=== PATIENT | female | born 1995 | race Caucasian/White ===

== ENCOUNTER 2021-04-17 22:58 | Emergency (ER) | payer BC ==
[~2021-04-17] VITALS: Ht 157.5 cm; Wt 66.2 kg
[2021-04-17 23:08] VITALS: BP 140/90
[2021-04-17 23:34] LABS: BASOPHILS % (AUTO) 0.5 % (0.0-2.0); EOSINOPHILS # (AUTO) 0.2 K/uL (0-0.4); HEMATOCRIT 42.2 % (36-48); HEMOGLOBIN 14.6 g/dL (12.0-16.0); LYMPHOCYTES # (AUTO) 3.3 K/uL (2.5-16.5); LYMPHOCYTES % (AUTO) 33.9 % (20.5-51.1); MEAN CORPUSCULAR HEMOGLOBIN 30 pg (27-31); MEAN CORPUSCULAR HGB CONC 35 g/dL (33-37); MEAN CORPUSCULAR VOLUME 86.7 fL (80-94); MONOCYTES % (AUTO) 10.6 % (1.7-9.3); NEUTROPHILS # (AUTO) 5.2 K/uL (1.8-7.7); PLATELET COUNT (AUTO) 441 K/uL (140-450); RED BLOOD CELL COUNT(AUTO) 4.87 MIL/uL (4.20-5.40); RED CELL DISTRIBUTION WIDTH 12.4 % (11.6-13.7); WHITE BLOOD COUNT (AUTO) 9.8 K/uL (4.8-10.8)
[2021-04-17 23:57] LABS: ALBUMIN 4.3 g/dL (3.4-5.0); CARBON DIOXIDE 27.2 mmol/L (21-32); CREATININE 0.7 mg/dL (0.6-1.3); POTASSIUM 4.2 mmol/L (3.5-5.1); TOTAL BILIRUBIN 0.4 mg/dL (0.0-1.0)
--- NOTE | 2021-04-18 01:54 | NUR ---
pt ambulated to bed 9
[2021-04-18 02:15] LABS: APPEARANCE,URINE CLEAR (CLEAR); BILIRUBIN,URINE NEGATIVE (NEGATIVE); BLOOD, URINE NEGATIVE (NEGATIVE); COLOR,URINE BROWN (YELLOW); LEUKOCYTE ESTERASE ,URINE NEGATIVE (NEGATIVE); NITRITE, URINE NEGATIVE (NEGATIVE); PH,URINE 6.5 (5.0-9.0); UGLUCOSE NEGATIVE (NEGATIVE)
--- NOTE | 2021-04-18 02:15 | NUR ---
Dr. Wolfe with pt for MSE
[2021-04-18] MEDS ORDERED: DICYCLOMINE 10 MG CAP PO ONE (02:20)
[2021-04-18] MEDS ORDERED: ONDANSETRON 4 MG/2 ML VIAL IVP ONE (02:20)
[2021-04-18] MEDS ORDERED: NACL 0.9% 1,000 ML IV SCH (02:20)
[2021-04-18 03:32] VITALS: BP 124/64
--- NOTE | 2021-04-18 03:45 | NUR ---
PO Challenge passed. Dr. Peña made aware.
--- NOTE | 2021-04-18 04:05 | NUR ---
d/c with VSS. d/c education given. opportunity to ask questions given and answered. norx given. copy laboratory results given to pt. IV site removed, bleeding controlled with sterile gauze and reinfoced with tape.
== END 2021-04-18 04:05 | disposition home or self-care (01) ==
LOC: MED 22:58
DX: R10.84 Generalized abdominal pain (principal); R19.7 Diarrhea, unspecified
CPT/HCPCS: 36415; 80053; 81003; 82150; 83690; 84703; 85025; 96361; 96374; 99283; J2405; J7030